=== PATIENT | female | born 1995 ===

== ENCOUNTER 2017-01-01 12:58 | Outpatient (CLI) | payer OTHER ==
[2017-01-01] MEDS ORDERED: FEOSOL325 MG PO (14:56)
[2017-01-01] MEDS ORDERED: PRENATAL 1+1)(P1 TAB PO (14:57)
[2017-01-01 15:02] LABS: AMNISURE RESULT NEGATIVE (NEGATIVE)
== END 2017-01-01 17:25 | disposition disaster alternative care site (69) ==
LOC: GOBM 12:58 → GOBS 12:58 → GOBM 17:25
PROVIDERS: Obstetrics & Gynecology
DX: O47.03 False labor before 37 completed weeks of gestation, third trimester (principal); Z3A.35 35 weeks gestation of pregnancy; O44.43 Low lying placenta NOS or without hemorrhage, third trimester
CPT/HCPCS: G0463